=== PATIENT | male | born 1980 | race Hispanic/Latino ===

== ENCOUNTER 2018-05-22 17:59 | Emergency (ER) | payer SELFPAY ==
[2018-05-22] MEDS ORDERED: CHLORPROMAZINE HCL 25 MG/ML 1ML AMP ONE ×2 (18:25)
[2018-05-22] MEDS ORDERED: METOCLOPRAMIDE 10 MG TABLET ONE (20:13)
[2018-05-22 21:43] LABS: BASOPHILS % (AUTO) 0.5 % (0.0-5.0); EOSINOPHILS % (AUTO) 2.1 % (0.0-8.0); HEMATOCRIT 45.9 % (42-54); LYMPHOCYTES % (AUTO) 31.6 % (21.0-51.0); MEAN CORPUSCULAR HEMOGLOBIN 29.9 pg (27.0-33.0); MEAN CORPUSCULAR HGB CONC 33.5 g/dL (32.0-36.0); MEAN CORPUSCULAR VOLUME 89.3 fL (79-99); MONOCYTES % (AUTO) 9.8 % (3.0-13.0); PLATELET COUNT (AUTO) 261 K/uL (130-400); RED BLOOD CELL COUNT(AUTO) 5.13 MIL/uL (4.50-6.20); RED CELL DISTRIBUTION WIDTH 13.1 % (11.0-15.5); WHITE BLOOD COUNT (AUTO) 6.7 K/uL (4.8-10.8)
[2018-05-22] MEDS ORDERED: LORAZEPAM 1 MG TABLET ONE (22:28)
[2018-05-22] MEDS ORDERED: HALOPERIDOL 1 MG TABLET ONE (22:28)
== END 2018-05-22 23:16 | disposition left against medical advice (07) ==
LOC: EDH 17:59
DX: R06.6 Hiccough (principal); Z72.0 Tobacco use
CPT/HCPCS: 36415; 71045; 80048; 85025; 96372; 99284; J3230 ×2